=== PATIENT | male | born 1965 | race American Indian/Alaskan Native ===

== ENCOUNTER 2024-06-09 19:21 | Emergency (ER) | payer MEDICARE, SELFPAY ==
--- NOTE | 2024-06-09 19:23 | EDNOTE_ITS ---
ED Alcohol RME/HPI General Chief Complaint: Head Injury Stated Complaint: FALL Time Seen by Provider: 06/09/24 19:23 Arrival date/time: 06/09/24 19:21 Mode of arrival: ambulatory Limitations: no limitations RME / HPI RME / HPI narrative: DR. ARROYO MAIN ED EVALUATION: 58-year-old male with history of alcohol use presents to the Emergency Department BIBA after falling down 2 steps. He is complaining of a lump on the back of his head. He has no neck pain. Patient had a sixpack today but is not slurring his speech. Related Data Allergies Allergy/AdvReac Type Severity Reaction Status Date / Time No Known Allergies Allergy Verified 06/09/24 21:41 Review of Systems Review of Systems Systems Reviewed: All systems reviewed, normal except as documented Narrative Review of Systems: GEN: No fever, no chills, no weight loss, + lump on the back of his head (see HPI) EYES: No discharge, no visual changes, no pain HEENT: No ear pain, no congestion, no sore throat PULM: No shortness of breath, no cough, no congestion CV: No chest pain, no dyspnea on exertion, no palpitations GI: No nausea, no vomiting, no diarrhea, no pain, no constipation : No frequency, no urgency and no dysuria MUSC/SKEL: No joint pain, no back pain SKIN: No rash PSYCH: No hallucinations, no depression HEME/LYMPH: No easy bleeding or bruising tendencies NEURO: No weakness, no headache Past Medical History Social History SMOKING STATUS: Never smoker SUBSTANCE USE: does not use ALCOHOL: Current ED Exam Narrative Physical exam: Patient has a large hematoma on the occiput. Awake and talking full sentences. General Limitations: Present no limitations General appearance: Present alert; Absent in no apparent distress or appears intoxicated Eye Eye exam: Present normal appearance, PERRL and EOMI; Absent scleral icterus or conjunctival injection Neck Neck exam: Present normal inspection, full ROM and trachea midline; Absent tenderness or meningismus Respiratory Respiratory exam: Present normal lung sounds bilaterally; Absent respiratory distress, wheezes or stridor Abdominal Exam Abdominal exam: Present soft and distention; Absent tenderness, guarding or rebound Extremities Exam Extremities exam: Present normal inspection and full ROM; Absent tenderness, normal capillary refill or pedal edema Neurological Exam Neurological exam: Present alert, oriented X3, normal gait and other (Normal finger-nose); Absent motor sensory deficit Skin Skin exam: Absent rash, cyanosis or mottled Course Quality Measures none Orders Category Date Time Status EKG (ED ONLY) *Do not use* NOW Care 06/09/24 19:39 Completed Ice Pack to Nose NEEDED Care 06/09/24 20:[address] cervical spine wo con Stat Exams 06/09/24 19:[address] head/brain wo con Stat Exams 06/09/24 19:30 Completed EKG (ED Only) Stat Exams 06/09/24 19:39 Draft Acetaminophen Tab [Tylenol Tab] Med 06/09/24 19:40 Discontinued 650 mg PO X1 ONE HYDROcodone/APAP 10/325 [Lee 10/325] Med 06/09/24 21:40 Discontinued 1 tab PO X1 ONE Vital Signs Vital signs: Vital Signs Temperature 97.7 F 06/09/24 19:29 Pulse Rate 85 06/09/24 19:29 Respiratory Rate 17 06/09/24 19:29 Blood Pressure 135/84 H 06/09/24 19:29 Pulse Oximetry (%) 99 06/09/24 19:29 Oxygen Delivery Method Room Air 06/09/24 19:29 Procedures -ED EKG Interpretation #1: Date of EK06/09/24 Time of EK:48 Rate: 83 Interpretation: Interpreted by me Additional EKG comment: sinus rhythm, rate 83, no elevations or depressions, normal intervals, normal axis, no STEMI, QTc is 412, no previous EKG for comparison Discharge Plan Plan Patient Disposition: HOME (Self Care) Patient condition on transfer: Stable Prescriptions/Referrals Referrals: Leighton Kim MD [Physician] - In 1 week Problem List Clinical Impression: Closed head injury, Contusion of scalp Patient/Caregiver Discharge Instructions Education Materials: ED Head Injury (Adult) Additional Instructions: You want to avoid a another head injury in the next 6 to 8 weeks to avoid a secondary concussion or traumatic brain injury. Please no contact sports and wear helmet if you go to be doing anything that you might hit your head. Stay hydrated Pedialyte and Gatorade for the next few days. Avoid alcohol. Return to the emergency department for any worsening symptoms or any other concerns. You can take [id number] Tylenol 650 mg 3 times a day for the next 2 to 3 days. Follow-up with your primary care in the next 72 hours. Print Language: [place] Citizen Stand Alone Forms: Michelle Award Info., Patient Portal Info Letter Alcohol MDM Narrative MDM Narrative: I, Becki Reis, am scribing for and in the presence of Dr. Arroyo. Patient data External records reviewed:: EMS form Clinical information provided by:: patient and EMS Social determinants that could affect healthcare access:: alcohol use Patient has the following chronic illnesses:: No known PMHx or known allergies. Alcohol abuse. How is presenting disease/condition affected by chronic disease/condition?: no chronic disease Evaluation data The following diagnostics were reviewed and interpreted by me:: lab results, radiology exam(s) and EKG tracing(s) Lab and/or radiology exams considered but not ordered:: none Interpretation Summary: Procedure(s): CT head/brain wo con Accession Number(s): [id number] cc: Laurie Brownlee MD; Jose Burr MD; Ivanna Arroyo MD~ Examination: CT brain head without contrast. 2-D sagittal coronal reconstructions Date and time of exam:June 09, 20241951 hrs. Indications: Patient fell down 2 steps today with injury to the head, scalp contusion head pain CTDI: vol (mGy):58.2 DLP: (mGycm):1242 Technique: Multiple CT axial sections of the brain have been obtained, 5 mm slice thickness. Contrast has not been administered. 2-D sagittal, coronal reconstructions have been obtained Low dose protocols were performed. One or more of the following dose reduction techniques were used; automated exposure control, adjustment of the mA and/or KV according to patient size, use of iterative reconstruction technique. Findings: No significant ventricular enlargement. Intra-axial or extra-axial hemorrhage density is not seen. No mass effect or midline shift Basal cisterns are not remarkable. Fourth ventricle is midline. Cranial vault intact. Impression: Negative for acute hemorrhage, mass effect or midline shift Dictated By: Jose Burr MD Procedure(s): CT cervical spine con Accession Number(s): [id number] cc: Laurie Brownlee MD; Jose Burr MD; Ivanna Arroyo MD~ Examination: CT cervical spine without contrast 2-D sagittal reconstructions 2-D coronal reconstructions 3-D reconstructions. Exam date and time:June 09, 2024 1953 hrs. Indications: Patient fell down steps today with into the neck, neck pain CTDI:vol (mGy) 10.4 DLP: (mGycm) 250 Technique: Multiple 2 mm axial sections of the cervical spine have been obtained. The coronal and sagittal reconstructions have been obtained. 3-D reconstructions have been obtained. Low dose protocols were performed. One or more of the following dose reduction techniques were used; automated exposure control, adjustment of the mA and/or KV according to patient size, use of iterative reconstruction technique. Findings: Axial sections demonstrate intact base of the skull. Cervical fusion C5-C7 with anatomic alignment C1 exhibit satisfactory relationship to the odontoid. No acute cervical vertebral body fracture seen. Alignment posterior spinous processes satisfactory. Impression: No acute cervical fracture. Dictated By: Jose Burr MD Medications / Prescriptions Medications or Prescriptions considered but not ordered:: none Medication administrations:: Medication Administration History Discontinued Medications Acetaminophen (Acetaminophen 325 Mg Tablet) 650 mg PO X1 ONE Stop: 06/09/24 19:41 Last Admin: 06/09/24 19:45 Dose: 650 mg Documented By: NICOLE Hydrocodone Bitart/Acetaminophen (Hydrocodone/Apap 10/325 Tab) 1 tab PO X1 ONE Stop: 06/09/24 21:41 Last Admin: 06/09/24 21:43 Dose: 1 tab Documented By: NICOLE see above Consultations Consultation(s) initiated? (list below): No Diagnosis Differential diagnosis alcohol: alcohol intoxication and other (contusion, fracture, dislocation, headache,) Most likely diagnosis given after review of the tests above:: Closed head injury Contusion of scalp Admission Indicated Admission indicated?: not indicated Admission Request Was there a request for admission?: No Disposition Plan Disposition Plan: Discharge Discharge Attestation Discharge Attestation: The patient and all family members were given an opportunity to ask questions and understood the discharge instructions. Discharge instructions specifically effects, indications for sooner follow up or return to the emergency department, and the expected course of current diagnosis. Patient condition: Stable
[2024-06-09 19:29] VITALS: BP 135/84; PULSE 85; RESP 17; TEMP 36.5; O2SAT 99
--- NOTE | 2024-06-09 19:29 | XR_ITS ---
Examination: CT cervical spine without contrast 2-D sagittal reconstructions 2-D coronal reconstructions 3-D reconstructions. Exam date and time:June 09, 2024 1953 hrs. Indications: Patient fell down steps today with into the neck, neck pain CTDI:vol (mGy) 10.4 DLP: (mGycm) 250 Technique: Multiple 2 mm axial sections of the cervical spine have been obtained. The coronal and sagittal reconstructions have been obtained. 3-D reconstructions have been obtained. Low dose protocols were performed. One or more of the following dose reduction techniques were used; automated exposure control, adjustment of the mA and/or KV according to patient size, use of iterative reconstruction technique. Findings: Axial sections demonstrate intact base of the skull. Cervical fusion C5-C7 with anatomic alignment C1 exhibit satisfactory relationship to the odontoid. No acute cervical vertebral body fracture seen. Alignment posterior spinous processes satisfactory. Impression: No acute cervical fracture.
[2024-06-09 19:30] VITALS: BMI 39.1
--- NOTE | 2024-06-09 19:30 | XR_ITS ---
Examination: CT brain head without contrast. 2-D sagittal coronal reconstructions Date and time of exam:June 09, 2024 1952 hrs. Indications: Patient fell down 2 steps today with injury to the head, scalp contusion head pain CTDI: vol (mGy):58.2 DLP: (mGycm):1242 Technique: Multiple CT axial sections of the brain have been obtained, 5 mm slice thickness. Contrast has not been administered. 2-D sagittal, coronal reconstructions have been obtained Low dose protocols were performed. One or more of the following dose reduction techniques were used; automated exposure control, adjustment of the mA and/or KV according to patient size, use of iterative reconstruction technique. Findings: No significant ventricular enlargement. Intra-axial or extra-axial hemorrhage density is not seen. No mass effect or midline shift Basal cisterns are not remarkable. Fourth ventricle is midline. Cranial vault intact. Impression: Negative for acute hemorrhage, mass effect or midline shift
[2024-06-09 19:32] VITALS: PULSE 84; RESP 18; O2SAT 100; BMI 39.1
--- NOTE | 2024-06-09 19:39 | EKG_ITS ---
[facility] Test Date: 2024-06-09 Pat Name: REZA TAYLOR Department: Room: - Gender: Male Medical Doctor Nuclear Medicine: : 1965 Requested By: Ivanna Garcia Order Number: [id number] Reading MD: Ivanna Garcia Measurements Intervals [place] Rate: 83 P: 58 ME: 188 QRS: 68 QRSD: 88 T: 58 QT: 372 QTc: 438 Interpretive Statements SINUS RHYTHM No previous ECG available for comparison /store/S0/[id number]/ecg/[id number].pdf
[2024-06-09 19:43] VITALS: BP 114/71; PULSE 83; RESP 20; O2SAT 92
[2024-06-09] MEDS: ACETAMINOPHEN 325 MG TABLET 650 MG PO (19:45)
--- NOTE | 2024-06-09 19:46 | PC.NURSE ---
PATIENT WAS BROUGHT TO ER FOR FALL AFTER HAVING A FEW DRINKS AND FALLING DOWN TWO STEPS CAUSING A LARGE HEMATOMA ON BACK HEAD. PER PATIENT HE HAS HAD A FEW SYNCOPE EPISODE IN THE LAST FEW WEEKS. PATIENT WAS PLACED ON DRIVE IN TELLER WAITING FOR TO BE TAKEN TO CT SCAN.
[2024-06-09 21:38] VITALS: BP 105/70; PULSE 88; RESP 18; TEMP 36.6; O2SAT 95
[2024-06-09] MEDS: HYDROcodone/APAP 10/325 TAB PO (21:43)
[2024-06-09 22:06] VITALS: BP 112/70; PULSE 76; RESP 18; TEMP 36.7; O2SAT 95
== END 2024-06-09 22:07 | disposition home or self-care (01) ==
PROVIDERS: Emergency Provider Emergency Medicine; PCP Internal Medicine
DX: S00.03XA Contusion of scalp, initial encounter (principal); M54.2 Cervicalgia; W10.9XXA Fall (on) (from) unspecified stairs and steps, initial encounter
CPT/HCPCS: 70450; 72125; 93005; 99284; A9270

== ENCOUNTER → 2024-06-18 | Outpatient (CLI) | payer MEDICARE, SELFPAY ==
--- NOTE | 2024-06-18 09:00 | XR_ITS ---
MRI shoulder, right, without contrast. Date and time: June 18, 2024 1005 hours INDICATIONS: Right shoulder pain with abduction numbness and paresthesias in the right arm shoulder joint locking and clicking stiffness 6 months Technique: Multiple axial, sagittal and coronal sections of the shoulder have been obtained. Siemens high-resolution 1.5 Alize MRI scanner is utilized. Axial fat-suppressed sections, TR 2350, TE 18 T2-weighted coronal fat-saturated images, TR 3500, TE 7100 T1-weighted coronal images, TR 500, TE 15 T2-weighted sagittal fat-saturated images, TR 3500, TE 57 T1-weighted sagittal sections, TR 504, TE 13. Findings: Supraspinatus tendon insertion 6 mm partial-thickness articular surface tear. Infraspinatus tendon insertion is intact. Subscapularis insertion is intact. Subscapularis bursa is not seen. Long head of the biceps is in the bicipital groove. No definite tear of the biceps superior labral anchor is seen. Retraction of the musculotendinous junction of the rotator cuff is not seen . Tendinosis pattern is moderate. Distance between the acromium and humeral head is 6.3 mm Atrophy of the supraspinatus muscle is mild. Atrophy of the infraspinatus muscle is mild. Sagittal sections demonstrate a horizontal acromion. Acromioclavicular joint demonstrates moderate osteoarthritis. Osacromiale is not identified. Fraying and irregularity anterior superior labral margins. Bony glenoid fossa on the sagittal sections does not demonstrate osseous defect. Occult fracture or area of avascular necrosis is not seen. Acromioclavicular joint separation is not visible. Defect in the posterolateral margin of the humeral head is not seen Impression: 6 mm partial-thickness articular surface tear supraspinatous Fraying and irregularity anterior superior labral margins
--- NOTE | 2024-06-18 09:30 | XR_ITS ---
Examination: MRI cervical spine without intravenous contrast Date and time of exam: June 18, 2024 1031 hours INDICATIONS: Neck pain radiating to the right arm 32 years, worse the last 6 months, history cervical spine surgery Technique: Multiple axial and sagittal sections of the cervical spine to been obtained. T2 weighted sagittal sections, TR 3, 270, TE 117 T1-weighted sagittal sections, TR 500, TE 11 T1-weighted axial sections, TR 607, TE 12, axial sections TR 18, TE 27 and T2 weighted transverse sections, TR 3920, TE 122. Findings: Cervical fusion C5-C7 with anatomic alignment No cervical fracture Intact odontoid Diffuse cervical disc desiccation T2-weighted images demonstrate increased signal diffusely in the cervical cord C2-C3 moderate left neural foraminal stenosis [id number] uncinate process hypertrophy with advanced bilateral neural foraminal stenosis C4-C5 prominent uncinate process hypertrophy with advanced bilateral neural foraminal stenosis C5-C6 advanced bilateral neural foraminal stenosis C6-C7 advanced bilateral neural foraminal stenosis C7-T1 no disc protrusion IMPRESSION: Cervical fusion C5-C7 with anatomic alignment Significant bilateral neural foraminal stenosis as above
== END | disposition home or self-care (01) ==
PROVIDERS: PCP Internal Medicine; Referring Provider Internal Medicine; Visit Provider Internal Medicine
DX: M48.02 Spinal stenosis, cervical region (principal); M43.22 Fusion of spine, cervical region; M75.101 Unspecified rotator cuff tear or rupture of right shoulder, not specified as traumatic; M25.811 Other specified joint disorders, right shoulder
CPT/HCPCS: 72141; 73221

== ENCOUNTER → 2024-06-28 | Outpatient (CLI) | payer MEDICARE, SELFPAY ==
--- NOTE | 2024-06-28 12:03 | XR_ITS ---
Examination: Right hand 2 views Technique one AP lateral right hand 2 views Exam date and time: June 28, 2024 1237 hours INDICATIONS: Hand pain years. FINDINGS: Moderate osteopenia No acute fracture No erosive or other significant arthritic change No foreign bodies No cortical bone destruction IMPRESSION: No acute fracture No erosive or other significant arthritic change
--- NOTE | 2024-06-28 12:03 | XR_ITS ---
Examination: Left hand 2 views TECHNIQUE: AP lateral left hand 2 views INDICATIONS: Hand pain years. FINDINGS: Moderate osteopenia No acute fracture Suspicious for old fracture of the ulnar styloid tip and there is an old healed fracture of the distal radius with secondary moderate osteoarthritis radiocarpal joint 2 mm opaque foreign body in the soft tissue adjacent to the base of the fifth metacarpal IMPRESSION: Old healed fracture distal radial metaphysis with secondary moderate osteoarthritis radiocarpal joint
== END | disposition home or self-care (01) ==
PROVIDERS: PCP Internal Medicine; Referring Provider Internal Medicine; Visit Provider Internal Medicine
DX: M79.642 Pain in left hand (principal); M79.641 Pain in right hand; Z87.81 Personal history of (healed) traumatic fracture
CPT/HCPCS: 73120

== ENCOUNTER 2025-03-07 11:03 | Emergency (ER) | payer MEDICARE, MEDICAID, SELFPAY ==
[2025-03-07 11:03] VITALS: BMI 40.7
[2025-03-07 11:48] VITALS: BP 156/85; PULSE 89; RESP 18; TEMP 36.9; O2SAT 99
--- NOTE | 2025-03-07 11:59 | EDNOTE_ITS ---
<Statement entered by Archana Livingston MD - 03/23/25 06:12> As co-signing physician, I was present and available for consult prn. I concur with the plan and care as documented by the midlevel provider. ED Male Genitalurinary RME/HPI General Chief complaint: Urogenital-Male Stated complaint: BURNING WITH URINATION X 2 DAYS Time Seen by Provider: 03/07/25 11:25 Arrival date/time: 03/07/25 11:03 This is a 59-year-old male that comes in with complaints of urinary symptoms for the last 2 days. Patient also complains of a fever. Related Data Previous Rx's ?Medication ?Instructions ?Recorded ibuprofen 800 mg tablet 800 mg PO Q6H PRN pain #10 t abs 03/07/25 Allergies Allergy/AdvReac Type Severity Reaction Status Date / Time No Known Allergies Allergy Verified 03/07/25 11:06 Review of Systems Review of Systems Systems Reviewed: All systems reviewed, normal except as documented Past Medical History Social History SMOKING STATUS: Never smoker SUBSTANCE USE: does not use ALCOHOL: Current ED Exam Narrative Physical exam: VITAL SIGNS: Reviewed. GENERAL APPEARANCE: Alert and interactive, follows commands, no acute distress HEAD AND FACE: Non-traumatic. ENT: PERRL, conjuctiva pink and clear, eyelid no trauma, Mucous membrane moist. NECK: Supple, nontender, no nuchal rigidity. CHEST: No tenderness, no crepitus, no paradoxical movement, no retractions. LUNGS: breathing even and unlabored HEART: Regular rate, cap refill less than 2 seconds ABDOMEN: Soft, nondistended, no guarding, nontender NEUROLOGICAL: Gross motor function intact sensory function intact, Appropriate for age. MUSCULOSKELETAL: low back nontender, full range of motion. EXTREMITIES: No redness no swelling no skin breakdown on bilateral foot and leg. Distal neurovascular status intact bilateral foot SKIN: Color pink, dry, no rash, no lacerations, no abrasions, no contusions. Course Quality Measures none Orders Category Date Time Status Urinalysis, C/S if Indicated Stat Lab 03/07/25 11:56 Completed Urine Culture Stat Lab 03/07/25 11:56 Completed Ibuprofen Tab [Motrin Tab] Med 03/07/25 13:15 Discontinued 800 mg PO X1 ONE cefTRIAXone [Rocephin] 1,000 mg Med 03/07/25 13:15 Discontinued Lidocaine 1% 20 ml [Xylocaine 1% 20 ML] 2.1 ml IM X1 Vital Signs Vital signs: Vital Signs Temperature 98.5 F 03/07/25 11:48 Pulse Rate 89 03/07/25 11:48 Respiratory Rate 18 03/07/25 11:48 Blood Pressure 156/85 H 03/07/25 11:48 Pulse Oximetry (%) 99 03/07/25 11:48 Oxygen Delivery Method Room Air 03/07/25 11:48 Urogenital - Male MDM Narrative MDM Narrative:: Urine positive for UTI. Patient also has hematuria. I did speak to patient at length about this. Patient needs to follow-up with primary provider in 1 to 2 days. Patient needs to follow-up with urine culture with primary provider. Patient comfortable plan of care. Patient also told that she needs to make sure that he blood results in urine. Patient may have an enlarged prostate I did speak to patient about this. Patient is going to talk to her primary doctor about this. Patient data External records reviewed:: [facility] previous records Clinical information provided by:: patient Social determinants that could affect healthcare access:: none Patient has the following chronic illnesses:: see hpi How is presenting disease/condition affected by chronic disease/condition?: uneffected by Evaluation data The following diagnostics were reviewed and interpreted by me:: lab results Lab and/or radiology exams considered but not ordered:: none Interpretation Summary: see note Medications / Prescriptions Medications or Prescriptions considered but not ordered:: none Medication administrations:: Medication Administration History Discontinued Medications Ceftriaxone Sodium 1,000 mg/ (Lidocaine HCl 2.1 ml) 0 mg IM X1 ONE Stop: 03/07/25 13:16 Last Admin: 03/07/25 13:32 Dose: 2.1 mg Documented By: OA Ibuprofen (Ibuprofen Tab 400 Mg Tablet) 800 mg PO X1 ONE Stop: 03/07/25 13:16 Last Admin: 03/07/25 13:32 Dose: 800 mg Documented By: OA see [facility] Consultations Consultation(s) initiated? (list below): No Diagnosis Urogenital Male Differential Diagnosis: urinary tract infection, prostatitis, acute retention of urine and other (pyelonephritis ) Most likely diagnosis given after review of the tests above:: uti with hematuria Admission Indicated Admission indicated?: not indicated Admission Request Was there a request for admission?: No Disposition Plan Disposition Plan: Discharge Discharge Attestation Discharge Attestation: The patient and all family members were given an opportunity to ask questions and understood the discharge instructions. Discharge instructions specifically effects, indications for sooner follow up or return to the emergency department, and the expected course of current diagnosis. Patient condition: Stable Discharge Plan Plan Patient Disposition: HOME (Self Care) Patient condition on transfer: Stable Prescriptions/Referrals Prescriptions/Med Rec: New ibuprofen 800 mg tablet 800 mg PO Q6H PRN (Reason: pain) Qty: 10 0RF Referrals: Laurie Brownlee MD [Primary Care Provider] - In 1 week Problem List Clinical Impression: Urinary tract infection, Hematuria Patient/Caregiver Discharge Instructions Discharge Activity: activity as tolerated Education Materials: ED Hematuria, ED Bladder Infection, Male (Adult) Additional Instructions: Follow up with primary provider in 1-2 days. Come back to ED if symptoms change or worsen Print Language: [place] Stand Alone Forms: Michelle Award Info., Patient Portal Info Letter PA/NAYLA Supervising Physician PA/NAYLA Supervising Physician: chandler
[2025-03-07 12:02] LABS: Collection Type, Urine Voided
[2025-03-07 13:04] LABS: Bilirubin,Urine Negative (Negative); Blood,Urine Trace (Negative); Color,Urine Yellow (Lt Yel-Yel); Glucose, Urine Negative (Negative); Ketones,Urine Negative (Negative); Leukocyte Esterase,Urine Positive (Negative); Nitrite,Urine Negative (Negative); PH,Urine 6.0 (5.0-7.0); Protein,Urine 1+ (Neg - Trace); RBC,Urine 12 /hpf (0-3); Specific Gravity,Urine 1.024 (1.001-1.035); Squamous Epithelial Cell,Urine < 1 /hpf (0-5); Urobilinogen,Urine Negative mg/dL (0.0-1.0); WBC,Urine 86 /hpf (0-5)
[2025-03-07 13:09] LABS: Clarity,Urine Hazy (Clear/Hazy); Culture Indicated,Urine Yes; Sperm,Urine Present
[2025-03-07] MEDS: IBUPROFEN TAB 400 MG TABLET 800 MG PO (13:32)
[2025-03-07] MEDS: cefTRIAXone 1,000 MG, LIDOCAINE 1% 20 ML 2.1 ML IM (13:32)
== END 2025-03-07 14:48 | disposition home or self-care (01) ==
PROVIDERS: Nurse Practitioner Family; Emergency Provider Emergency Medicine; PCP Internal Medicine
DX: N39.0 Urinary tract infection, site not specified (principal); R31.9 Hematuria, unspecified
CPT/HCPCS: 81001; 87077; 87086; 87186; 96372; 99282; J0696; J3490; A9270

== ENCOUNTER → 2025-05-10 | Outpatient (CLI) | payer MEDICAID, BC, SELFPAY ==
--- NOTE | 2025-05-10 08:30 | XR_ITS ---
EXAMINATION: Ultrasound abdominal aorta TECHNIQUE: Grayscale sonographic images of the abdominal aorta and iliac arteries Date and time: May 10, 2025, 0752 hours INDICATIONS: Nicotine dependence smoking history, screening for abdominal aortic aneurysm FINDINGS: Transverse dimension proximal aorta 2.9 cm mid aorta 2.0 cm distal aorta 2.0 cm right iliac 1.3 cm left iliac 1.3 cm IMPRESSION: Negative for abdominal aortic aneurysm
--- NOTE | 2025-05-10 09:00 | XR_ITS ---
Examination: CT lung low dose screening, without contrast. 2-D sagittal reconstructions. 2-D coronal reconstructions. 3-D reconstructions. Date and time of exam: May 10, 2025, 1532 hours INDICATIONS: Nicotine dependence smoking history 20 years CTDI: vol (mGy): 19.6 DLP: (mGycm): 50 Technique: Multiple 1.25 mm axial sections of the lung have been obtained. 2-D sagittal and coronal reconstructions have been obtained. 3-D reconstructions have been obtained. Low dose protocols were performed. One or more of the following dose reduction techniques were used; automated exposure control, adjustment of the mA and/or KV according to patient size, use of iterative reconstruction technique. Findings: No focal liver or splenic lesions No gallstones No mediastinal lymphadenopathy No pneumonia or pulmonary edema or definite pulmonary nodules No visualized liver or splenic lesion No gallstones No pancreatic mass IMPRESSION: No mediastinal lymphadenopathy No noncalcified pulmonary nodules No pneumonia or pulmonary edema or pleural disease
== END | disposition home or self-care (01) ==
PROVIDERS: PCP Nurse Practitioner Family; Referring Provider Nurse Practitioner Family; Visit Provider Nurse Practitioner Family
DX: Z13.6 Encounter for screening for cardiovascular disorders (principal); Z87.891 Personal history of nicotine dependence
CPT/HCPCS: 71271; 76706